=== PATIENT | female | born 1975 | race Caucasian/White ===

== ENCOUNTER 2016-05-17 08:00 | Inpatient (IN) | payer OTHER ==
[2016-05-14 15:36] LABS: HEMATOCRIT 42.4 % (36.0-48.0); HEMOGLOBIN 14.4 g/dL (12-16); MCH 29.1 pg (26.0-34.0); MCV 85.8 fL (80.0-100.0); MEAN PLATELET VOLUME 10.2 fL (7.4-10.4); RBC 4.94 10x6/uL (4.00-5.40); RDW 13.4 % (11.5-14.5); WBC 7.4 10x3/uL (4.8-10.8)
[~2016-05-17] VITALS: Ht 152.4 cm; Wt 55.3 kg
[~2016-05-17 08:00] MED LIST: AUGMENTIN 875-11 TAB PO; BUSPAR 15 MG TA15 MG PO; CELEXA20 MG PO; CELEXA40 MG PO; CIPRO500 MG PO; DIFLUCAN200 MG PO; DURAGESIC1 PATCH .4 TD; ESTRIDOL PO; FERATE240 ( 27 ); FLAGYL 500500 MG/100 PO; FLAGYL500 MG PO; HYDROCODON-ACE1 EAC7 PO; HYDROCODONE-APA1 TAB PO; INTRALIPID 20%250 ML IV; KEFLEX500 MG PO; LEVAQUIN PREMI750 MG PO; LEVAQUIN500 MG PO; LISINOPRIL10 MG PO; MAXIPIME 2 GM/D52 G1 IV; MIRALAX17 GM PO; MIRALAX527 GM PO; MULTIPLE VITAMI1 TA1 PO; NICODERM C1 PATCH .3 TRANSDERM; NORCO 5/325 TAB1 TA1 PO; NORCO 7.5/325 T1 TA1 PO; OMEPRAZOLE40 MG PO; OXYCODONE HCL10 MG PO; PERCOCET 5-3251 TAB PO; PHENERGAN25 M1 PO; ROCEPHIN 2 GM/D52 G1 IV; TIGAN300 MG PO; TPN; ULTRAM50 MG PO; VALIUM 2 MG TAB2 MG PO; VISTARIL25 MG PO; XANAX XR3 MG PO; ZOFRAN ODT4 MG/UDTAB PO; ZOFRAN4 MG PO
[2016-05-17] MEDS ORDERED: XANAX1 MG PO (10:03)
[2016-05-17] MEDS ORDERED: GAS MEDICATION (10:07)
[2016-05-17 10:14] VITALS: BP 109/81; Ht 152.4 cm; Wt 55.3 kg
--- NOTE | 2016-05-17 10:32 | NUR ---
1025 WARMING GOWN ON WARMEST TEMPTERATURE. PT INFORMED HOW TO ADJUST TEMPTERATURE IF SHE BECOMES TOO WARM. Rajinder EVANS R.N.
[2016-05-17] MEDS ORDERED: NORCO 7.5/325 T1 TA1 PO (14:23)
[2016-05-17] MEDS ORDERED: BACTRIM DS TABL1 TAB PO (14:23)
--- NOTE | 2016-05-17 16:24 | NUR ---
CM met with patient and spouse regarding discharge planning / needs. Patient and spouse requested home health services at discharge. Stated spouse is independent with colostomy care and they have plenty of ostomy supplies that they obtain from [facility]. However, spouse will be out of town for a few days and patient's sister, Constance Fraire [phone], will be assisting patient and may need home health support during this time. Patient selected [facility]. CM contacted [email or web address]. Spoke with Andra. Andra will verify if agency is in network with patient's insurance company. Faxed copy of order and demographics to Andra. Awaiting determination.
--- NOTE | 2016-05-17 17:06 | NUR ---
Recieved call back from Andra with [facility]. Agency is unable to determine if they are in network with patient's insurance at this time. Expects to get answer tomorrow morning. Spoke with patient and spouse regarding status of referral. CM will follow up with [facility] tomorrow morning. If [facility] is not in network with patient's insurance, patient choice [facility] as her second option. CM will follow up with patient tomorrow after finalizing home health. Patient and spouse both voiced satisfaction and understanding of this informantion. CM notified patient's nurse Natalie. Natalie will proceed with discharge at this time.
--- NOTE | 2016-05-17 21:24 | OP ---
PATIENT NAME: ROSALINDA OSORIO MEDICAL RECORD: [id number] :77 LOCATION:[facility]- ADMISSION DATE:05/17/16 SURGEON: ASHOK ULLOA MD DATE OF OPERATION: 05/17/2016 PREOPERATIVE DIAGNOSIS: Retraction of colostomy. POSTOPERATIVE DIAGNOSIS: Retraction of colostomy. PROCEDURE PERFORMED: Colostomy revision. SURGEON: Ashok Ulloa MD ANESTHESIA: General. COMPLICATIONS: None. SPECIMENS: None. Case was contaminated. OPERATIVE COURSE: After consent was obtained, the patient was taken to the operating room in the operating room and placed in the supine position on the operating table. Next, general anesthesia was given via endotracheal intubation. After a timeout was performed that confirmed the correct patient and procedure, the abdomen was prepped and draped in typical sterile fashion. The colostomy was excised at the skin edge junction using a 15 blade scalpel. Once complete, dissection continued down the level of the external oblique fascia using electrocautery. Once the colostomy was circumferentially dissected out the external oblique fascia, we were able to gain several centimeters in length. At this time, a wound was copiously irrigated and suctioned. The colostomy was fashioned in a standard Eden fashion using 3-0 Vicryl suture. Once complete, the abdomen was cleaned. A colostomy was prepped and draped in typical sterile fashion. The patient was extubated and transferred to the PACU in stable condition. TRANSINT:[id number] Voice Confirmation ID: [id number] DOCUMENT ID: [id number] ASHOK ULLOA MD at 2124 CC: [id number] DICTATION DATE: 05/17/16 1420 ORGANISATION AND METHODS ANALYST: 05/17/161955 DIS IN 05/17/16 [facility] [address] [id number]
--- NOTE | 2016-05-18 09:59 | NUR ---
NETTA followed up with Andra at [facility] regarding status of referral. Andra informed CM that agency was not in network with patient's insurance. CM called and spoke with Erin with [facility] (formerly [facility]) regarding referral. Erin will verify if agency is in network with patient's insurance company and call CM back. Faxed referral information to Erin. Awaiting determination.
--- NOTE | 2016-05-18 10:28 | NUR ---
CM received call back from Erin with [facility]. [facility] is not in network with patient's insurance. CM called patient and informed of status of referral with [facility] and [facility]. Patient instructed CM to call [facility] with referral and stated that if [facility] did not accept referral CM could then contact [facility]. Patient explained to CM that although she has used [facility] in the past that she prefered not to use [facility] due to lack of communication regarding her supply needs. Patient went on to explain that the agency's nurses provided good care, but she was dissatisfied with the lack of communication between nursing staff and [facility] office regarding her supplies. CM called [facility] and spoke with Jduith regarding referral. Judith stated [facility] was in network with patient's insurance. Judith instructed CM to fax referral to agency and [facility] would call CM back with determination of acceptance of referral. CM faxed referral information to [facility]. Awaiting determination.
--- NOTE | 2016-05-18 11:08 | NUR ---
NETTA received call back from Adryan with [facility]. Adryan stated agency would accept referral and plan to admit patient tomorrow. Adryan requested most recent clinic note and current medication list. NETTA called Dr. Hoskins's office and requested above information be faxed to [facility] agency. CM called patient and notified her of status of referral and to expect home health agency admission tomorrow. Patient voiced understanding and satisfaction with above information. Instructed patient that if she had not heard from [facility] agency tomorrow to call CM back. Patient voiced understanding and repeated back CM's phone number.
== END 2016-05-17 17:40 | disposition home health service (06) | DRG 349 ==
LOC: D.SDCHOLD 08:00
PROVIDERS: Anesthesiology; ADMIT Surgery
PROC: 0WQFXZ2 Repair Abdominal Wall, Stoma, External Approach (ICD-10-PCS; principal; 2016-05-17 10:00)
DX: K94.09 Other complications of colostomy (principal); Y83.8 Other surgical procedures as the cause of abnormal reaction of the patient, or of later complication, without mention of misadventure at the time of the procedure; J44.9 Chronic obstructive pulmonary disease, unspecified; J45.909 Unspecified asthma, uncomplicated; I10 Essential (primary) hypertension; F41.9 Anxiety disorder, unspecified; K75.9 Inflammatory liver disease, unspecified; F17.200 Nicotine dependence, unspecified, uncomplicated

== ENCOUNTER 2016-05-27 17:41 | Emergency (ER) | payer OTHER ==
[2016-05-17 10:14] VITALS: BMI 23.8
[~2016-05-27 17:41] MED LIST changes: +BACTRIM DS TABL1 TAB PO; +GAS MEDICATION; +XANAX1 MG PO
[2016-05-27 18:33] LABS: BASOPHILS 0.4 % (0.0-2.0); EOSINOPHILS 2.9 % (0-7); HEMATOCRIT 38.8 % (36.0-48.0); HEMOGLOBIN 12.8 g/dL (12-16); IMMATURE GRANULOCYTES 0.2 % (0-5); LYMPHOCYTES 19.8 % (15-50); MCH 28.3 pg (26.0-34.0); MCV 85.8 fL (80.0-100.0); MEAN PLATELET VOLUME 9.5 fL (7.4-10.4); MONOCYTES 8.8 % (2-11); NEUTROPHILS 67.9 % (40-80); RBC 4.52 10x6/uL (4.00-5.40); RDW 13.2 % (11.5-14.5); WBC 10.1 10x3/uL (4.8-10.8)
[2016-05-27 18:34] LABS: PLATELET COUNT 429 10x3/uL (130-400)
[2016-05-27 18:42] LABS: APTT 27.2 SECONDS (22.8-39.4); INR 0.93 (0.85-1.17); PROTIME 12.4 SECONDS (11.6-15.0)
[2016-05-27 19:10] LABS: ALBUMIN 3.2 g/dL (3.4-5.0); ALKALINE PHOSPHATASE 80 U/L (46-116); ALT (SGPT) 13 U/L (10-68); BILIRUBIN - TOTAL 0.12 mg/dL (0.2-1.3); CALC OSMOLALITY 276 mosm/kg (275-300); CALCIUM 9.2 mg/dL (8.5-10.1); CHLORIDE - SERUM 102 mmol/L (98-107); CREATININE - SERUM 0.7 mg/dL (0.6-1.3); GLUCOSE 101 mg/dL (74-106); PROTEIN - SERUM 7.1 g/dL (6.4-8.2); SODIUM 139 mmol/L (136-145); UREA NITROGEN 10 mg/dL (7-18); eGFR NON AFRICAN AMERICAN > 90 mL/min (90-120)
== END 2016-05-27 22:17 | disposition home or self-care (01) ==
LOC: D.ER 17:41
PROVIDERS: Emergency Medicine
DX: K94.01 Colostomy hemorrhage (principal)

== ENCOUNTER 2016-07-09 08:15 | Emergency (ER) | payer OTHER ==
[2016-05-17 10:14] VITALS: BMI 23.8
== END 2016-07-09 09:43 | disposition home or self-care (01) ==
LOC: D.ER 08:15
DX: R07.89 Other chest pain (principal); Z93.3 Colostomy status

== ENCOUNTER 2016-07-11 14:37 | Emergency (ER) | payer OTHER ==
[2016-05-17 10:14] VITALS: BMI 23.8
== END 2016-07-11 15:51 | disposition home or self-care (01) ==
LOC: D.ER 14:37
DX: S21.112D Laceration without foreign body of left front wall of thorax without penetration into thoracic cavity, subsequent encounter (principal); X58.XXXD Exposure to other specified factors, subsequent encounter; Y92.89 Other specified places as the place of occurrence of the external cause; Z48.00 Encounter for change or removal of nonsurgical wound dressing

== ENCOUNTER 2016-07-18 10:41 | Emergency (ER) | payer OTHER ==
[2016-05-17 10:14] VITALS: BMI 23.8
== END 2016-07-18 12:02 | disposition home or self-care (01) ==
LOC: D.ER 10:41
DX: S21.102D Unspecified open wound of left front wall of thorax without penetration into thoracic cavity, subsequent encounter (principal); X58.XXXD Exposure to other specified factors, subsequent encounter

== ENCOUNTER → 2017-07-28 08:00 | Outpatient (CLI) | payer MEDICAID ==
[2016-05-17 10:14] VITALS: BMI 23.8
[~2017-07-28 08:00] MED LIST changes: +CHRONULAC30 ML PO; +ESTRACE2 MG PO; +IBUPROFEN800 MG PO; +PROTONIX40 MG PO
[2017-07-28 08:38] LABS: CREATININE - SERUM 0.8 mg/dL (0.6-1.3)
== END | disposition home or self-care (01) ==
LOC: D.CT 08:00
PROVIDERS: Family Medicine
DX: R10.31 Right lower quadrant pain (principal)

== ENCOUNTER 2017-07-29 18:50 | Emergency (ER) | payer MEDICAID ==
[~2017-07-29] VITALS: Ht 152.4 cm; Wt 69.1 kg
[~2017-07-29 18:50] MED LIST changes: -CHRONULAC30 ML PO; -ESTRACE2 MG PO; -IBUPROFEN800 MG PO; -PROTONIX40 MG PO
[2017-07-29 18:57] VITALS: Ht 152.4 cm; Wt 69.1 kg
[2017-07-29] MEDS ORDERED: CHRONULAC30 ML PO (23:08)
[2017-07-30 00:08] VITALS: BP 163/113
[2017-09-20] MEDS ORDERED: ESTRACE2 MG PO (09:22)
[2017-09-20] MEDS ORDERED: PROTONIX40 MG PO (09:23)
== END 2017-07-30 00:09 | disposition home or self-care (01) ==
LOC: D.ER 18:50
DX: K59.00 Constipation, unspecified (principal); Z87.19 Personal history of other diseases of the digestive system; Z93.3 Colostomy status; R11.0 Nausea; B19.20 Unspecified viral hepatitis C without hepatic coma; I12.9 Hypertensive chronic kidney disease with stage 1 through stage 4 chronic kidney disease, or unspecified chronic kidney disease; N18.3 Chronic kidney disease, stage 3 (moderate); I10 Essential (primary) hypertension

== ENCOUNTER → 2017-08-02 07:38 | Outpatient (CLI) | payer MEDICAID ==
[2017-07-29 18:57] VITALS: BMI 29.7
[~2017-08-02 07:38] MED LIST changes: +CHRONULAC30 ML PO; +ESTRACE2 MG PO; +IBUPROFEN800 MG PO; +PROTONIX40 MG PO
== END | disposition home or self-care (01) ==
LOC: D.CT 07:38
DX: R91.8 Other nonspecific abnormal finding of lung field (principal)

== ENCOUNTER 2017-08-04 08:00 | Emergency (ER) | payer MEDICAID ==
[~2017-08-04] VITALS: Ht 152.4 cm; Wt 69.5 kg
[~2017-08-04 08:00] MED LIST changes: -ESTRACE2 MG PO; -IBUPROFEN800 MG PO; -PROTONIX40 MG PO
[2017-08-04 08:06] VITALS: Ht 152.4 cm; Wt 69.5 kg
[2017-08-04 08:32] LABS: BASOPHILS 0.4 % (0-2); EOSINOPHILS 2.5 % (0-7); HEMOGLOBIN 13.8 g/dL (12-16); IMMATURE GRANULOCYTES 0.1 % (0-5); LYMPHOCYTES 34.3 % (15-50); MCH 29.4 pg (26.0-34.0); MCHC 33.7 g/dL (31.0-37.0); MCV 87.2 fL (80.0-100.0); MEAN PLATELET VOLUME 9.8 fL (7.4-10.4); MONOCYTES 6.7 % (2-11); RDW 13.7 % (11.5-14.5); WBC 7.1 10x3/uL (4.8-10.8)
[2017-08-04 08:34] LABS: PLATELET COUNT 308 10x3/uL (130-400)
[2017-08-04 08:48] LABS: ALBUMIN 3.4 g/dL (3.4-5.0); ALKALINE PHOSPHATASE 63 U/L (46-116); ALT (SGPT) 24 U/L (10-68); CALC OSMOLALITY 270 mosm/kg (275-300); CALCIUM 8.7 mg/dL (8.5-10.1); CARBON DIOXIDE 24.6 mmol/L (21.0-32.0); CHLORIDE - SERUM 103 mmol/L (98-107); CREATININE - SERUM 0.8 mg/dL (0.6-1.3); GLUCOSE 138 mg/dL (74-106); POTASSIUM - SERUM 3.7 mmol/L (3.5-5.1); PROTEIN - SERUM 7.3 g/dL (6.4-8.2); SODIUM 134 mmol/L (136-145); UREA NITROGEN 14 mg/dL (7-18); eGFR NON AFRICAN AMERICAN 84 mL/min (90-120)
[2017-08-04 08:49] LABS: AMYLASE - SERUM 52 U/L (25-115); LIPASE 167 U/L (73-393); TROPONIN-I < 0.017 ng/mL (0.000-0.060)
[2017-08-04 08:57] LABS: APPEARANCE HAZY (CLEAR); BACTERIA MODERATE /hpf (NONE SEEN); BILIRUBIN NEGATIVE (NEGATIVE); CALCIUM OXALATE CRYSTALS RARE /hpf (NONE SEEN); COLOR YELLOW (YELLOW); GLUCOSE NEGATIVE (NEGATIVE); KETONE NEGATIVE (NEGATIVE); MUCUS >1+ /lpf (NONE SEEN); NITRITE NEGATIVE (NEGATIVE); PROTEIN NEGATIVE (NEGATIVE); RED CELLS - URINE RARE /hpf (0-5); SPECIFIC GRAVITY 1.025 (1.005-1.020); UDS - AMPHET NEGATIVE QUAL (NEGATIVE); UDS - BARB NEGATIVE QUAL (NEGATIVE); UDS - BENZO POSITIVE QUAL (NEGATIVE); UDS - COCAINE NEGATIVE QUAL (NEGATIVE); UDS - OPIATE NEGATIVE QUAL (NEGATIVE); UDS - PCP NEGATIVE QUAL (NEGATIVE); UDS - THC POSITIVE QUAL (NEGATIVE); UROBILINOGEN NORMAL (NORMAL)
[2017-08-04 10:23] VITALS: BP 146/98
[2017-09-20] MEDS ORDERED: ESTRACE2 MG PO (09:22)
[2017-09-20] MEDS ORDERED: PROTONIX40 MG PO (09:23)
== END 2017-08-04 10:24 | disposition home or self-care (01) ==
LOC: D.ER 08:00
PROVIDERS: Family Medicine
DX: R10.9 Unspecified abdominal pain (principal); R19.7 Diarrhea, unspecified; F17.200 Nicotine dependence, unspecified, uncomplicated

== ENCOUNTER 2017-08-08 17:33 | Emergency (ER) | payer MEDICAID ==
[~2017-08-08] VITALS: Ht 152.4 cm; Wt 69.5 kg
[2017-08-08 17:45] VITALS: Ht 152.4 cm; Wt 69.5 kg
[2017-08-08 18:19] LABS: BASOPHILS 0.6 % (0-2); EOSINOPHILS 2.1 % (0-7); HEMATOCRIT 41.4 % (36.0-48.0); HEMOGLOBIN 13.8 g/dL (12-16); IMMATURE GRANULOCYTES 0.3 % (0-5); LYMPHOCYTES 34.4 % (15-50); MCH 29.4 pg (26.0-34.0); MCHC 33.3 g/dL (31.0-37.0); MCV 88.1 fL (80.0-100.0); MEAN PLATELET VOLUME 9.5 fL (7.4-10.4); MONOCYTES 9.4 % (2-11); NEUTROPHILS 53.2 % (40-80); PLATELET COUNT 279 10x3/uL (130-400); RDW 13.4 % (11.5-14.5); WBC 7.2 10x3/uL (4.8-10.8)
[2017-08-08 18:30] LABS: APPEARANCE CLEAR (CLEAR); COLOR YELLOW (YELLOW)
[2017-08-08 18:35] LABS: BILIRUBIN NEGATIVE (NEGATIVE); GLUCOSE NEGATIVE (NEGATIVE); KETONE NEGATIVE (NEGATIVE); NITRITE NEGATIVE (NEGATIVE); PROTEIN NEGATIVE (NEGATIVE); UROBILINOGEN NORMAL (NORMAL)
[2017-08-08 18:49] LABS: ALBUMIN 3.6 g/dL (3.4-5.0); ALKALINE PHOSPHATASE 64 U/L (46-116); ALT (SGPT) 20 U/L (10-68); BILIRUBIN - TOTAL 0.13 mg/dL (0.2-1.3); CALC OSMOLALITY 277 mosm/kg (275-300); CALCIUM 9.5 mg/dL (8.5-10.1); CARBON DIOXIDE 24.7 mmol/L (21.0-32.0); CHLORIDE - SERUM 104 mmol/L (98-107); CREATININE - SERUM 0.8 mg/dL (0.6-1.3); LIPASE 210 U/L (73-393); POTASSIUM - SERUM 3.9 mmol/L (3.5-5.1); PROTEIN - SERUM 7.8 g/dL (6.4-8.2); SODIUM 140 mmol/L (136-145); UREA NITROGEN 12 mg/dL (7-18); eGFR NON AFRICAN AMERICAN 84 mL/min (90-120)
[2017-08-08 18:51] LABS: GLUCOSE 81 mg/dL (74-106)
[2017-08-08] MEDS ORDERED: IBUPROFEN800 MG PO (23:58)
[2017-08-09 00:28] VITALS: BP 132/72
[2017-09-20] MEDS ORDERED: ESTRACE2 MG PO (09:22)
[2017-09-20] MEDS ORDERED: PROTONIX40 MG PO (09:23)
== END 2017-08-09 00:19 | disposition home or self-care (01) ==
LOC: D.ER 17:33
PROVIDERS: Family Medicine
DX: R10.9 Unspecified abdominal pain (principal)

== ENCOUNTER 2017-09-21 06:55 | Inpatient (IN) | payer MEDICAID ==
[2017-09-20 10:16] LABS: MCH 29.2 pg (26.0-34.0); MCHC 33.3 g/dL (31.0-37.0); MCV 87.6 fL (80.0-100.0); MEAN PLATELET VOLUME 9.4 fL (7.4-10.4); RBC 4.45 10x6/uL (4.00-5.40); RDW 13.5 % (11.5-14.5); WBC 6.1 10x3/uL (4.8-10.8)
[2017-09-20 10:22] LABS: APTT 25.9 SECONDS (22.8-39.4); INR 0.9 (0.85-1.17); PROTIME 11.8 SECONDS (11.6-15.0)
[2017-09-20 10:30] LABS: ALBUMIN 3.2 g/dL (3.4-5.0); ANION GAP 9.7 mmol/L (8-16); BILIRUBIN - TOTAL 0.3 mg/dL (0.2-1.3); CALCIUM 8.4 mg/dL (8.5-10.1); CARBON DIOXIDE 28.5 mmol/L (21.0-32.0); CREATININE - SERUM 0.9 mg/dL (0.6-1.3); POTASSIUM - SERUM 4.2 mmol/L (3.5-5.1)
[~2017-09-21] VITALS: Ht 152.4 cm; Wt 69.9 kg
--- NOTE | ~2017-09-21 | OP ---
PATIENT NAME: ROSALINDA OSORIO MEDICAL RECORD: [id number] :77 LOCATION:D.MS [address] ADMISSION DATE:09/21/17 SURGEON: ASHOK ULLOA MD DATE OF OPERATION: 09/21/2017 SURGEON: Ashok Ulloa MD LAMBSKIN TRIMMER: Iram Rosen APN PREOPERATIVE DIAGNOSIS: Retraction of colostomy. POSTOPERATIVE DIAGNOSIS: Retraction of colostomy. PROCEDURE PERFORMED: Complicated colostomy revision. ANESTHESIA: General. COMPLICATIONS: None. SPECIMENS: Partial colectomy. ESTIMATED BLOOD LOSS: 100 cc. Case was contaminated. OPERATIVE COURSE: After consent was obtained, the patient was taken to the operating room and placed in supine position on the operating table. Next, general anesthesia was given via endotracheal intubation after a timeout was performed to confirm the correct patient and procedure. The abdomen was prepped and draped in typical sterile fashion and Ioban dressing was placed. A circular incision was made around the retracted colostomy. Dissection continued using electrocautery. The patient has had a previous left lower quadrant colostomy, colostomy reversal and end colostomy with a previous operation for retraction of colostomy. Dissection continued around the colostomy using right angle dissection and electrocautery until the external oblique fascia was identified. The external oblique fascia was circumferentially dissected again using blunt right angle dissection and electrocautery. Once the fascial edges identified, dissection continued along the fascial edges circumferentially until the colon was circumferentially freed up. Approximately 6-8 inches of colon were able to be advanced through the ostomy fascial incision. Gentle finger dissection was done on the peritoneum to free adhesions on the anterior abdominal wall. Next, multiple silk sutures were placed to hold the colostomy in place. A colostomy was fashioned in a standard Eden fashion using 3-0 Vicryl suture. At the end of the case, all needle and instrument counts were correct. No complications occurred. The patient was extubated and transferred to the PACU in stable condition. TRANSINT:[id number] Voice Confirmation ID: [id number] DOCUMENT ID: [id number] OPERATIVE REPORT [id number] ROSALINDA OSORIO JAMES J MD at 1306 CC: [id number] DICTATION DATE: 09/21/17 1136 OFFICE SERVICES SPECIALIST: 09/21/17 1234 ADM IN [place] [address] [place] [address]
[~2017-09-21 06:55] MED LIST changes: +ESTRACE2 MG PO; +IBUPROFEN800 MG PO; +PROTONIX40 MG PO
[2017-09-21 08:22] VITALS: BP 127/74; BMI 30.1
[2017-09-21 12:53] VITALS: BP 124/93
[2017-09-21 16:23] VITALS: BP 117/73
[2017-09-21 17:10] VITALS: BMI 30.1
[2017-09-21 21:03] VITALS: BP 122/69
[2017-09-22 01:06] VITALS: BP 118/66
[2017-09-22 04:00] VITALS: BP 116/70
[2017-09-22 06:42] LABS: BASOPHILS 0.1 % (0-2); EOSINOPHILS 3.9 % (0-7); HEMATOCRIT 33.7 % (36.0-48.0); HEMOGLOBIN 10.8 g/dL (12-16); IMMATURE GRANULOCYTES 0.1 % (0-5); LYMPHOCYTES 14.9 % (15-50); MCH 28.2 pg (26.0-34.0); MEAN PLATELET VOLUME 9.6 fL (7.4-10.4); MONOCYTES 7.3 % (2-11); NEUTROPHILS 73.7 % (40-80); PLATELET COUNT 230 10x3/uL (130-400); RBC 3.83 10x6/uL (4.00-5.40); WBC 7.6 10x3/uL (4.8-10.8)
[2017-09-22 07:26] LABS: CALC OSMOLALITY 281 mosm/kg (275-300); CALCIUM 7.3 mg/dL (8.5-10.1); CARBON DIOXIDE 27.4 mmol/L (21.0-32.0); CHLORIDE - SERUM 108 mmol/L (98-107); CREATININE - SERUM 0.8 mg/dL (0.6-1.3); GLUCOSE 96 mg/dL (74-106); MAGNESIUM - SERUM 1.6 mg/dL (1.8-2.4); POTASSIUM - SERUM 4.5 mmol/L (3.5-5.1); SODIUM 142 mmol/L (136-145); eGFR NON AFRICAN AMERICAN 84 mL/min (90-120)
[2017-09-22 07:27] LABS: UREA NITROGEN 9 mg/dL (7-18)
[2017-09-22 08:52] VITALS: BP 133/77
[2017-09-22 12:09] VITALS: BP 128/73
[2017-09-22 14:18] VITALS: Ht 152.4 cm; Wt 69.9 kg
[2017-09-22 15:57] VITALS: BP 118/73
[2017-09-22 21:29] VITALS: BP 141/97
[2017-09-23 00:14] VITALS: BP 130/77
[2017-09-23 04:36] VITALS: BP 127/76
[2017-09-23 08:31] VITALS: BP 110/67
[2017-09-23] MEDS ORDERED: HYDROCODON-ACE1 EAC7 PO (09:15)
== END 2017-09-23 11:08 | disposition home or self-care (01) | DRG 349 ==
LOC: D.SDCHOLD 06:55 → D.MS 06:55 → OBSVTIME 06:55 → D.SDCHOLD 08:00 → D.MS 12:12
PROVIDERS: Anesthesiology; Surgery
PROC: 0WQFXZ2 Repair Abdominal Wall, Stoma, External Approach (ICD-10-PCS; principal; 2017-09-21 09:00)
DX: K94.09 Other complications of colostomy (principal); Y83.8 Other surgical procedures as the cause of abnormal reaction of the patient, or of later complication, without mention of misadventure at the time of the procedure

== ENCOUNTER 2017-09-23 22:26 | Inpatient (IN) | payer MEDICAID ==
[~2017-09-23] VITALS: Ht 152.4 cm; Wt 69.9 kg
--- NOTE | ~2017-09-23 | DS ---
PATIENT:ROSALINDA OSORIO :77 MEDICAL RECORD: [id number] DISCHARGE SUMMARY ADMISSION DATE: 09/24/17 DISCHARGE DATE: 09/26/17 DATE OF ADMISSION: 09/24/2017 DATE OF DISCHARGE: 09/26/2017 HOSPITAL COURSE: A 41-year-old female who was readmitted after a complex recurrent colostomy revision with some swelling and pain around the colostomy site. The patient was taken to the operating room for drainage of post-procedural fluid collection. She was started on IV antibiotics. A Tena dressing was placed in the operating room. Postoperatively, the patient was transferred to the floor in stable condition. The patient was treated with routine wound care, IV fluids and IV antibiotics. At the time of discharge, the patient was tolerating regular diet. Her pain was well controlled on oral pain medicine. She was ambulating independently with functional work and colostomy. Please add this hospital course to previously performed discharge summary in the electronic medical record. TRANSINT:[id number] Voice Confirmation ID: [id number] DOCUMENT ID: [id number] ASHOK ULLOA MD at 1255 CC: [id number] DICTATION DATE: 11/02/17 1656 TWISTER TENDER PAPER: 11/02/17 1825 DIS IN 09/26/17 [address] [place] [address]
--- NOTE | ~2017-09-23 | OP ---
PATIENT NAME: ROSALINDA OSORIO MEDICAL RECORD: [id number] :77 LOCATION:D. D.2106 ADMISSION DATE:09/24/17 SURGEON: ASHOK ULLOA MD DATE OF OPERATION: 09/26/2017 SURGEON: Ashok Ulloa MD PREOPERATIVE DIAGNOSIS: Postoperative wound seroma. POSTOPERATIVE DIAGNOSIS: Postoperative wound seroma. PROCEDURE PERFORMED: Incision and drainage of postoperative wound seroma. ANESTHESIA: General. COMPLICATIONS: None. SPECIMENS: None. WOUND CLASS: Contaminated. OPERATIVE COURSE: After informed consent was obtained, the patient was taken to the operating room and placed in supine position on the operating table. General anesthesia was given. Timeout was taken to confirm the correct patient and procedure. The abdomen was prepped and draped in a typical sterile fashion. There was some fluctuance noted around the left lower quadrant colostomy that was revised earlier last week. There were no overlying skin changes. A small incision was made to the left lower quadrant of the colostomy. A Apurva clamp was passed the incision to the area to the subcutaneous tissue surrounding the colostomy. Approximately 60 cc of serous fluid was drained from the abdomen. A Bro[place] Arrow drain was placed into the subcutaneous tissue surrounding the colostomy. It was secured in place using a 3-0 nylon suture. At the end of the case, all needle and instrument counts were correct. No complications occurred. The patient was extubated and transferred to the PACU in stable condition. TRANSINT:[id number] Voice Confirmation ID: [id number] DOCUMENT ID: [id number] ASHOK ULLOA MD at 1648 CC: [id number] DICTATION DATE: 09/26/17 1157 MANAGER USER EXPERIENCE: 09/26/17 1254 ADM IN [facility] [address] [place] [address]
--- NOTE | ~2017-09-23 | HP ---
PATIENT: ROSALINDA OSORIO MEDICAL RECORD: [id number] ACCOUNT: [id number] LOCATION:[address] : [birth year] ADMISSION DATE: 09/24/17 HISTORY AND PHYSICAL EXAMINATION CHIEF COMPLAINT: Pain. HISTORY OF PRESENT ILLNESS: The patient recently underwent a revision of stoma. It had inverted and Dr. Ulloa was able to get it to kaykay. She now presents with fluid around the stoma as well as some gas. She has had increasing pain. The stoma continues to function. She states that she has been afebrile. Palpation aggravates. Nothing alleviates. She describes the pain as a 10/10. ALLERGIES: No known drug allergies. HOME MEDICATIONS: Lactulose as well as [place], multivitamins, Celexa, polyethylene glycol, BuSpar, lisinopril, Estrace, Protonix. PAST MEDICAL AND SURGICAL HISTORY: Renal insufficiency, history of colostomy. No genitourinary problems. No respiratory problems. Positive for depression. SOCIAL HISTORY: She smokes and advised her to quit smoking. FAMILY HISTORY: Positive for cardiovascular disease and diabetes in a parent. PHYSICAL EXAMINATION: GENERAL: The patient does not appear acutely ill. She does appear chronically ill. The entire physical examination was performed with the presence of a female nurse. VITAL SIGNS: Reviewed. EARS: External ears appear normal. EYES: Extraocular movements are intact. NECK: Trachea is midline. CHEST: No intercostal retractions. PULMONARY: Nonlabored, no stridor. ABDOMEN: Tenderness around the left lower quadrant stoma. PSYCHIATRIC: Anxious affect. NEUROLOGIC: Nonfocal, no lethargy. The patient answers questions appropriately, moves all extremities well. BACK: No thoracic kyphosis. LYMPHATICS: No lymphangitic streaking of the exposed extremities. LABORATORY DATA: I have reviewed the lab results. I have reviewed the CT images. I have reviewed the CT report. IMPRESSION: Subcutaneous fluid collection that also contained air-fluid levels in the subcutaneous tissues around the patient's left lower quadrant stoma. PLAN: Will be exploration of the stoma in the operating room tomorrow. The risks, possible complications, and alternatives to proceed were explained to the patient. She elects to proceed. TRANSINT:[id number] Voice Confirmation ID: [id number] DOCUMENT ID: [id number] HISTORY AND PHYSICAL [id number] DEVONROSALINDA ROBERT MD at 1242 CC: CANDELARIA WEINBERG DO and ASHOK ULLOA MD [id number] DICTATION DATE: 09/24/172044 EMBEDDED SOFTWARE ARCHITECT: 09/24/174 DIS IN 09/26/17 [address] [place] [id number]
[2017-09-23 22:58] LABS: APPEARANCE CLEAR (CLEAR); BILIRUBIN NEGATIVE (NEGATIVE); COLOR YELLOW (YELLOW); GLUCOSE NEGATIVE (NEGATIVE); KETONE SMALL mg/dL (NEGATIVE); NITRITE NEGATIVE (NEGATIVE); PROTEIN NEGATIVE (NEGATIVE); UROBILINOGEN NORMAL (NORMAL)
[2017-09-23 23:36] LABS: BASOPHILS 0.1 % (0-2); HEMATOCRIT 33.1 % (36.0-48.0); HEMOGLOBIN 10.8 g/dL (12-16); IMMATURE GRANULOCYTES 0.2 % (0-5); LYMPHOCYTES 15.1 % (15-50); MCH 28.3 pg (26.0-34.0); MCHC 32.6 g/dL (31.0-37.0); MCV 86.9 fL (80.0-100.0); MEAN PLATELET VOLUME 9.4 fL (7.4-10.4); NEUTROPHILS 72.6 % (40-80); PLATELET COUNT 238 10x3/uL (130-400); RBC 3.81 10x6/uL (4.00-5.40); RDW 13.6 % (11.5-14.5)
[2017-09-23 23:43] LABS: ALBUMIN 2.8 g/dL (3.4-5.0); ALKALINE PHOSPHATASE 61 U/L (46-116); ALT (SGPT) 16 U/L (10-68); BILIRUBIN - TOTAL 0.27 mg/dL (0.2-1.3); CALC OSMOLALITY 264 mosm/kg (275-300); CALCIUM 8.4 mg/dL (8.5-10.1); CHLORIDE - SERUM 104 mmol/L (98-107); CREATININE - SERUM 0.7 mg/dL (0.6-1.3); GLUCOSE 133 mg/dL (74-106); POTASSIUM - SERUM 4.5 mmol/L (3.5-5.1); PROTEIN - SERUM 6.6 g/dL (6.4-8.2); SODIUM 133 mmol/L (136-145); eGFR NON AFRICAN AMERICAN > 90 mL/min (90-120)
[2017-09-23 23:49] LABS: UREA NITROGEN 4 mg/dL (7-18)
[2017-09-24] VITALS (11 sets, daily range): BP systolic 103–155; BP diastolic 57–96; BMI 30.1
[2017-09-25 04:00] VITALS: BP 109/62
[2017-09-25 05:34] LABS: BASOPHILS 0.3 % (0-2); EOSINOPHILS 6.4 % (0-7); HEMATOCRIT 33.8 % (36.0-48.0); HEMOGLOBIN 10.8 g/dL (12-16); IMMATURE GRANULOCYTES 0.1 % (0-5); LYMPHOCYTES 24.6 % (15-50); MCH 28.1 pg (26.0-34.0); MCV 87.8 fL (80.0-100.0); MEAN PLATELET VOLUME 9.3 fL (7.4-10.4); MONOCYTES 9.5 % (2-11); NEUTROPHILS 59.1 % (40-80); PLATELET COUNT 275 10x3/uL (130-400); RBC 3.85 10x6/uL (4.00-5.40); RDW 13.7 % (11.5-14.5)
[2017-09-25 06:30] LABS: CALC OSMOLALITY 276 mosm/kg (275-300); CALCIUM 8.4 mg/dL (8.5-10.1); CARBON DIOXIDE 24.1 mmol/L (21.0-32.0); CHLORIDE - SERUM 107 mmol/L (98-107); CREATININE - SERUM 0.6 mg/dL (0.6-1.3); GLUCOSE 90 mg/dL (74-106); POTASSIUM - SERUM 4.4 mmol/L (3.5-5.1); SODIUM 140 mmol/L (136-145); eGFR NON AFRICAN AMERICAN > 90 mL/min (90-120)
[2017-09-25 06:38] LABS: UREA NITROGEN 6 mg/dL (7-18)
[2017-09-25 08:37] VITALS: BP 114/64
[2017-09-25 12:27] VITALS: BP 116/77
[2017-09-25 20:00] VITALS: BP 126/67
[2017-09-26] VITALS: BP 137/65
[2017-09-26 04:00] VITALS: BP 127/75
[2017-09-26 09:39] VITALS: BP 137/86
[2017-09-26] MEDS ORDERED: AUGMENTIN 875-11 TAB PO (11:50)
[2017-09-26 12:42] VITALS: Ht 152.4 cm; Wt 69.9 kg
[2017-09-26 12:59] VITALS: BP 120/76
[2017-09-26 17:05] VITALS: BP 138/99
== END 2017-09-26 15:30 | disposition home or self-care (01) | DRG 909 ==
LOC: D.ER 22:26 → D.EDHOLD 09-24 02:37 → D.M2 09-24 02:37
PROVIDERS: Family Medicine; Surgery
PROC: 0J980ZZ Drainage of Abdomen Subcutaneous Tissue and Fascia, Open Approach (ICD-10-PCS; principal; 2017-09-26 10:25)
DX: K91.872 Postprocedural seroma of a digestive system organ or structure following a digestive system procedure (principal); Y83.8 Other surgical procedures as the cause of abnormal reaction of the patient, or of later complication, without mention of misadventure at the time of the procedure

== ENCOUNTER 2017-12-17 19:53 | Emergency (ER) | payer MEDICAID ==
[~2017-12-17] VITALS: Ht 152.4 cm; Wt 70.5 kg
[2017-12-17 20:02] VITALS: Ht 152.4 cm; Wt 70.5 kg
[2017-12-17 23:09] VITALS: BP 123/79
== END 2017-12-17 23:10 | disposition home or self-care (01) ==
LOC: D.ER 19:53
DX: Z43.3 Encounter for attention to colostomy (principal)

== ENCOUNTER 2017-12-24 13:09 | Emergency (ER) | payer MEDICAID ==
[~2017-12-24] VITALS: Ht 152.4 cm; Wt 72.7 kg
[2017-12-24 13:17] VITALS: Ht 152.4 cm; Wt 72.7 kg
[2017-12-24] MEDS ORDERED: REXULTI1 MG (13:21)
[2017-12-24] MEDS ORDERED: VALIUM10 MG PO (13:22)
[2017-12-24] MEDS ORDERED: TYLENOL W/CODEI1 TAB PO (16:06)
[2017-12-24] MEDS ORDERED: VIBRAMYCIN 100100 MG PO (16:06)
[2017-12-24] MEDS ORDERED: VOLTAREN75 MG PO (16:07)
[2017-12-24 17:11] VITALS: BP 128/80
== END 2017-12-24 17:12 | disposition home or self-care (01) ==
LOC: D.ER 13:09
DX: L03.311 Cellulitis of abdominal wall (principal); Z93.3 Colostomy status; F17.200 Nicotine dependence, unspecified, uncomplicated

== ENCOUNTER 2017-12-30 17:23 | Emergency (ER) | payer MEDICAID ==
[~2017-12-30] VITALS: Ht 152.4 cm; Wt 75.0 kg
[~2017-12-30 17:23] MED LIST changes: +REXULTI1 MG; +TYLENOL W/CODEI1 TAB PO; +VALIUM10 MG PO; +VIBRAMYCIN 100100 MG PO; +VOLTAREN75 MG PO
[2017-12-30 17:26] VITALS: Ht 152.4 cm; Wt 75.0 kg
[2017-12-30 19:09] LABS: APPEARANCE CLEAR (CLEAR); BILIRUBIN NEGATIVE (NEGATIVE); COLOR YELLOW (YELLOW); GLUCOSE NEGATIVE (NEGATIVE); KETONE NEGATIVE (NEGATIVE); NITRITE NEGATIVE (NEGATIVE); PROTEIN NEGATIVE (NEGATIVE); UROBILINOGEN NORMAL (NORMAL)
[2017-12-30 19:12] LABS: BASOPHILS 0.5 % (0-2); EOSINOPHILS 4.1 % (0-7); HEMATOCRIT 40.2 % (36.0-48.0); HEMOGLOBIN 13.3 g/dL (12-16); IMMATURE GRANULOCYTES 0.2 % (0-5); LYMPHOCYTES 41.5 % (15-50); MCH 28.2 pg (26.0-34.0); MCHC 33.1 g/dL (31.0-37.0); MCV 85.2 fL (80.0-100.0); MEAN PLATELET VOLUME 9.4 fL (7.4-10.4); MONOCYTES 7.7 % (2-11); PLATELET COUNT 311 10x3/uL (130-400); RBC 4.72 10x6/uL (4.00-5.40); RDW 14.6 % (11.5-14.5); WBC 6.4 10x3/uL (4.8-10.8)
[2017-12-30 19:26] LABS: ALBUMIN 3.4 g/dL (3.4-5.0); ALKALINE PHOSPHATASE 76 U/L (46-116); ALT (SGPT) 31 U/L (10-68); BILIRUBIN - TOTAL 0.11 mg/dL (0.2-1.3); CALC OSMOLALITY 274 mosm/kg (275-300); CALCIUM 9.4 mg/dL (8.5-10.1); CARBON DIOXIDE 29.5 mmol/L (21.0-32.0); CHLORIDE - SERUM 103 mmol/L (98-107); CREATININE - SERUM 0.6 mg/dL (0.6-1.3); GLUCOSE 100 mg/dL (74-106); POTASSIUM - SERUM 4.3 mmol/L (3.5-5.1); PROTEIN - SERUM 7.6 g/dL (6.4-8.2); SODIUM 138 mmol/L (136-145); UREA NITROGEN 11 mg/dL (7-18); eGFR NON AFRICAN AMERICAN > 90 mL/min (90-120)
[2017-12-30 19:27] LABS: AMYLASE - SERUM 51 U/L (25-115); LIPASE 196 U/L (73-393)
[2017-12-30 19:32] LABS: TROPONIN-I < 0.017 ng/mL (0.000-0.060)
[2017-12-30 23:10] VITALS: BP 117/78
== END 2017-12-30 23:10 | disposition home or self-care (01) ==
LOC: D.ER 17:23
PROVIDERS: Family Medicine
DX: R10.32 Left lower quadrant pain (principal); Z93.3 Colostomy status; F17.200 Nicotine dependence, unspecified, uncomplicated

== ENCOUNTER 2018-02-07 18:00 | Emergency (ER) | payer SELFPAY ==
[~2018-02-07] VITALS: Ht 152.4 cm; Wt 68.2 kg
[2018-02-07 18:03] VITALS: Ht 152.4 cm; Wt 68.2 kg
[2018-02-07 19:00] LABS: APPEARANCE CLOUDY (CLEAR); COLOR YELLOW (YELLOW); NITRITE NEGATIVE (NEGATIVE)
[2018-02-07 19:01] LABS: AMORPHOUS SEDIMENT <1+ /lpf (NONE SEEN); BACTERIA MANY /hpf (NONE SEEN); BILIRUBIN NEGATIVE (NEGATIVE); EPITHELIAL CELLS OCC /hpf (0-5); GLUCOSE NEGATIVE (NEGATIVE); KETONE NEGATIVE (NEGATIVE); MUCUS <1+ /lpf (NONE SEEN); PROTEIN 2+ mg/dL (NEGATIVE); RED CELLS - URINE 25-50 /hpf (0-5); UROBILINOGEN NORMAL (NORMAL)
[2018-02-07] MEDS ORDERED: PHENAZOPYRIDIN100 MG PO (19:13)
[2018-02-07] MEDS ORDERED: MACROBID100 MG PO (19:13)
[2018-02-07 19:26] VITALS: BP 139/88
== END 2018-02-07 19:27 | disposition home or self-care (01) ==
LOC: D.ER 18:00
PROVIDERS: Family Medicine
DX: N39.0 Urinary tract infection, site not specified (principal); R35.0 Frequency of micturition; F17.200 Nicotine dependence, unspecified, uncomplicated

== ENCOUNTER 2018-09-07 14:27 | Emergency (ER) | payer MEDICARE, MEDICAID ==
[~2018-09-07] VITALS: Ht 152.4 cm; Wt 58.2 kg
[~2018-09-07 14:27] MED LIST changes: +MACROBID100 MG PO; +PHENAZOPYRIDIN100 MG PO
[2018-09-07 14:30] VITALS: Ht 152.4 cm; Wt 58.2 kg
[2018-09-07 15:00] LABS: BASOPHILS 0.7 % (0-2); EOSINOPHILS 2.5 % (0-7); HEMATOCRIT 37.9 % (36.0-48.0); HEMOGLOBIN 13.2 g/dL (12-16); IMMATURE GRANULOCYTES 0.3 % (0-5); LYMPHOCYTES 28.1 % (15-50); MCH 28.8 pg (26.0-34.0); MCHC 34.8 g/dL (31.0-37.0); MCV 82.8 fL (80.0-100.0); MEAN PLATELET VOLUME 9.2 fL (7.4-10.4); MONOCYTES 9.6 % (2-11); NEUTROPHILS 58.8 % (40-80); PLATELET COUNT 282 10x3/uL (130-400); RBC 4.58 10x6/uL (4.00-5.40); RDW 13.4 % (11.5-14.5); WBC 6.8 10x3/uL (4.8-10.8)
[2018-09-07 15:14] LABS: ALBUMIN 3.5 g/dL (3.4-5.0); ALKALINE PHOSPHATASE 87 U/L (46-116); ALT (SGPT) 34 U/L (10-68); BILIRUBIN - TOTAL 0.17 mg/dL (0.2-1.3); CALC OSMOLALITY 280 mosm/kg (275-300); CALCIUM 9.1 mg/dL (8.5-10.1); CARBON DIOXIDE 26.7 mmol/L (21.0-32.0); CHLORIDE - SERUM 106 mmol/L (98-107); CREATININE - SERUM 0.8 mg/dL (0.6-1.3); GLUCOSE 110 mg/dL (74-106); POTASSIUM - SERUM 4.3 mmol/L (3.5-5.1); PROTEIN - SERUM 7.4 g/dL (6.4-8.2); SODIUM 140 mmol/L (136-145); UREA NITROGEN 16 mg/dL (7-18); eGFR NON AFRICAN AMERICAN 84 mL/min (90-120)
[2018-09-07 15:18] LABS: AMYLASE - SERUM 77 U/L (25-115); LIPASE 156 U/L (73-393)
[2018-09-07 15:19] LABS: TROPONIN-I < 0.017 ng/mL (0.000-0.060)
[2018-09-07 15:51] LABS: APPEARANCE CLEAR (CLEAR); COLOR STRAW (YELLOW); NITRITE NEGATIVE (NEGATIVE); PROTEIN TRACE mg/dL (NEGATIVE)
[2018-09-07 15:52] LABS: BACTERIA FEW /hpf (NONE SEEN); BILIRUBIN NEGATIVE (NEGATIVE); GLUCOSE NEGATIVE (NEGATIVE); KETONE NEGATIVE (NEGATIVE); UROBILINOGEN NORMAL (NORMAL); WHITE CELLS - URINE 0-5 /hpf (0-5)
[2018-09-07] MEDS ORDERED: COLACE100 MG PO (17:58)
[2018-09-07] MEDS ORDERED: MIRALAX17 GM PO (17:58)
[2018-09-07 18:10] VITALS: BP 137/96
== END 2018-09-07 18:11 | disposition home or self-care (01) ==
LOC: D.ER 14:27
PROVIDERS: Family Medicine
DX: K59.00 Constipation, unspecified (principal)

== ENCOUNTER 2019-11-04 10:21 | Inpatient (IN) | payer MEDICARE ==
[~2019-11-04] VITALS: Ht 152.4 cm; Wt 68.9 kg
[~2019-11-04 10:21] MED LIST changes: +COLACE100 MG PO
--- NOTE | 2019-11-04 12:29 | NUR ---
DR. MUNIZ HERE TO SEE PT.
[2019-11-04 13:26] LABS: BASOPHILS 0.3 % (0-2); EOSINOPHILS 0.4 % (0-7); HEMATOCRIT 42.8 % (36.0-48.0); HEMOGLOBIN 14.1 g/dL (12-16); IMMATURE GRANULOCYTES 0.2 % (0-5); LYMPHOCYTES 20.8 % (15-50); MCH 28.6 pg (26.0-34.0); MCHC 32.9 g/dL (31.0-37.0); MCV 86.8 fL (80.0-100.0); MONOCYTES 8.3 % (2-11); PLATELET COUNT 310 10x3/uL (130-400); RBC 4.93 10x6/uL (4.00-5.40); RDW 12.9 % (11.5-14.5)
[2019-11-04 13:50] LABS: CALC OSMOLALITY 277 mosm/kg (275-300); CALCIUM 9.4 mg/dL (8.5-10.1); CARBON DIOXIDE 27.6 mmol/L (21.0-32.0); CHLORIDE - SERUM 105 mmol/L (98-107); CREATININE - SERUM 0.8 mg/dL (0.6-1.3); GLUCOSE 115 mg/dL (74-106); POTASSIUM - SERUM 3.4 mmol/L (3.5-5.1); SODIUM 139 mmol/L (136-145); UREA NITROGEN 11 mg/dL (7-18); eGFR NON AFRICAN AMERICAN 83 mL/min (90-120)
[2019-11-04 13:55] LABS: INR 0.97 (0.85-1.17); PROTIME 12.9 SECONDS (11.6-15.0)
[2019-11-04 13:56] LABS: ALKALINE PHOSPHATASE 96 U/L (30-120); ALT (SGPT) 19 U/L (10-68); BILIRUBIN - TOTAL 0.35 mg/dL (0.2-1.3); PROTEIN - SERUM 7.8 g/dL (6.4-8.2)
[2019-11-04 13:58] LABS: HCG SERUM NEGATIVE (NEGATIVE)
[2019-11-04 19:57] VITALS: BP 134/91
--- NOTE | 2019-11-04 20:30 | NUR ---
A&0 X 4. 1PERSON ASSIST FROM CHAIR TO BED. PAIN LEVEL 9/10. RIGHT KNEE IMMOBILIZER IN USE. WALE SHAYY IN USE AND FUNCTIONING PROPERLY. BSC AT BEDSIDE. PT EATING DINNER. CTM.
[2019-11-04] MEDS ORDERED: ADVIL200 MG PO (20:49)
--- NOTE | 2019-11-04 21:15 | NUR ---
WALE WAIVER SIGNED AND IN CHART. PT VERBALIZED UNDERSTANDING OF NEED TO USE CALL LIGHT BEFORE AMBULATION. COVID SWAB PERFORMED, CTM.
[2019-11-04 21:16] VITALS: BP 143/84
[2019-11-05] VITALS (12 sets, daily range): BP systolic 114–143; BP diastolic 67–92; Ht 152.4 cm; Wt 68.9 kg
--- NOTE | 2019-11-05 03:00 | NUR ---
NO TELEMETRY AVAILABLE PER DIRECTOR OF CONTRACTS.
[2019-11-05 05:11] LABS: BASOPHILS 0.6 % (0-2); EOSINOPHILS 2.9 % (0-7); HEMATOCRIT 37.6 % (36.0-48.0); HEMOGLOBIN 12.2 g/dL (12-16); IMMATURE GRANULOCYTES 0.3 % (0-5); LYMPHOCYTES 25.9 % (15-50); MCH 28.6 pg (26.0-34.0); MCHC 32.4 g/dL (31.0-37.0); MCV 88.3 fL (80.0-100.0); MONOCYTES 12.2 % (2-11); NEUTROPHILS 58.1 % (40-80); PLATELET COUNT 267 10x3/uL (130-400); RBC 4.26 10x6/uL (4.00-5.40); RDW 13.1 % (11.5-14.5)
[2019-11-05 05:31] LABS: ANION GAP 10.7 mmol/L (8-16); CALCIUM 8.2 mg/dL (8.5-10.1); CARBON DIOXIDE 27.8 mmol/L (21.0-32.0); CREATININE - SERUM 0.9 mg/dL (0.6-1.3); POTASSIUM - SERUM 3.5 mmol/L (3.5-5.1)
[2019-11-05 05:34] LABS: WBC 6.2 10x3/uL (4.8-10.8)
--- NOTE | 2019-11-05 08:58 | NUR ---
0700 BEDSIDE REPORT REECEIVED ASSESSMENT COMPLETE VOICES NO COMPLANAINTS AT THIS TIME UTILIZING CLINICAL ATHLETIC INSTRUCTOR MORPHINE
--- NOTE | 2019-11-05 12:27 | NUR ---
1220 PRE OP COMPLETE OR STAFF PRESENT TO TAKE TO SURGERY BRACELET AND 2 NIPPLE RINGS REMOVED AND LEFT IN ROOM
--- NOTE | 2019-11-05 15:40 | NUR ---
1530 RETURNED FROM PACU TO ROOM 6242 INITIATED FREQUENT VITAL SIGNS AWAKENS TO VOICE AND FOLLOWS COMMANDS NO FEELING OF TOUCH TO RLE R/T FEM POP BLOCK GIVEM IN SURGERY
--- NOTE | 2019-11-05 18:46 | NUR ---
DD/C OFFICE MACHINE SERVICER APPRENTICE MORPHINE WASTED IN CHARTING
[2019-11-06] VITALS (7 sets, daily range): BP systolic 114–153; BP diastolic 77–92
--- NOTE | 2019-11-06 03:49 | NUR ---
I have reviewed this patient and I concur with the Shift Assessment completed by the Licensed Practical Nurse today this shift.
[2019-11-06 06:29] LABS: BASOPHILS 0.1 % (0-2); EOSINOPHILS 0.7 % (0-7); HEMOGLOBIN 10.8 g/dL (12-16); IMMATURE GRANULOCYTES 0.1 % (0-5); LYMPHOCYTES 16.7 % (15-50); MCH 28.2 pg (26.0-34.0); MCHC 31.8 g/dL (31.0-37.0); MCV 88.8 fL (80.0-100.0); MONOCYTES 10.6 % (2-11); NEUTROPHILS 71.8 % (40-80); PLATELET COUNT 234 10x3/uL (130-400); RBC 3.83 10x6/uL (4.00-5.40); RDW 12.8 % (11.5-14.5)
[2019-11-06 06:43] LABS: CALCIUM 8.5 mg/dL (8.5-10.1); CARBON DIOXIDE 25.7 mmol/L (21.0-32.0); CHLORIDE - SERUM 105 mmol/L (98-107); CREATININE - SERUM 0.8 mg/dL (0.6-1.3); POTASSIUM - SERUM 3.8 mmol/L (3.5-5.1); SODIUM 139 mmol/L (136-145); eGFR NON AFRICAN AMERICAN 83 mL/min (90-120)
[2019-11-06 06:45] LABS: CALC OSMOLALITY 279 mosm/kg (275-300); GLUCOSE 164 mg/dL (74-106); UREA NITROGEN 8 mg/dL (7-18)
[2019-11-06 07:01] LABS: WBC 8.2 10x3/uL (4.8-10.8)
--- NOTE | 2019-11-06 12:05 | NUR ---
0700 BEDSIDE REPORT RECIEVED PT AWAKE AND SMILING ASSESSMENT COMPLETE
--- NOTE | 2019-11-06 12:06 | NUR ---
1000 AMBULATING IN [facility] WITH STANDBY ASSIST AND USING WALKER LIONEL WELL
--- NOTE | 2019-11-06 14:56 | MORECARE ---
CASE MANAGEMENT DISCHARGE SUMMARY PATIENT: ROSALINDA OSORIO UNIT: [id number] ADM DATE: 11/04/19 AGE: 44 : 77 SEX: F ROOM/BED: D.2238 AUTHOR: ANTHONY BLACK PHYSICIAN: REFERRING PHYSICIAN: HARISH PRAKASH MD DATE OF SERVICE: 11/06/19 Discharge Plan Patient Name: ROSALINDA OSORIO Facility: [facility]:[place] : 1975 Planned Disposition: Anticipated Discharge Date: Discharge Date: Expected LOS: Initial Reviewer: [email or web address] Initial Review Date: 11/06/2019 Generated: 11/06/19 3:56 pm Comments DCP- Discharge Planning Updated by [email or web address]: Andra Peng on 11/06/19 1:[address] Patient Name: ROSALINDA OSORIO Admission Status: ER Accout number: [id number] Admission Date: 11-04-2019 : 1975 Admission Diagnosis:DISPLACED BICONDYLAR FRACTURE OF RIGHT TIBIA, INIT Attending: HARISH PRAKASH Current LOS: 2 Anticipated DC Date: Planned Disposition: Primary Insurance: MEDICARE A & B Discharge Planning Comments: CM met with patient at bedside after explaining CM role and obtaining verbal consent. CM discussed availability / needs of home health, REHAB and medical equipment. STATES SHE WILL NEED A WALKER OR CRUTCHES. DOES NOT WANT HOME HEALTH BECAUSE SHE SAID SHE LIVES AT A [place]. PATIENT IS AMBULATORY WITH A WALKER IN THE HALLS. CM TO FOLLOW AND ASSIST NEEDED. Blending Machine Feeder: Andra Peng DCPIA - Discharge Planning Initial Assessment Updated by [email or web address]: Andra Peng on 11/06/19 2:54 pm * Is the patient Alert and Oriented? Yes * PCP FARO * Pharmacy [facility] * Preadmission Environment Other * Other Environment LIVES AT A [place] * ADLs Independent * Equipment None * Community resources currently utilized None * Additional services required to return to the preadmission environment? No * Can the patient safely return to the preadmission environment? Yes * Has this patient been hospitalized within the prior 30 days at any hospital? No Patient Name: ROSALINDA OSORIO Page [phone] at 1456 All edits/amendments must be made on the electronic document DICTATION DATE: 11/06/191455 ACTIVITIES COORDINATOR: BURKE 11/06/191455 RPT#: [id number] DC DATE: STATUS: ADM IN [facility] [address] [place] [address] END OF REPORT
--- NOTE | 2019-11-06 20:00 | NUR ---
PT SITTING UP IN BED WITHOUT DISTRESS, AOX4. BOYFRIEND AT BEDSIDE. DENIES NEEDS AT THIS TIME. CL IN REACH, WILL CTM
--- NOTE | 2019-11-06 22:00 | NUR ---
PT WALKING AROUND NURSES STATION WITH WALKER AND STAND BY ASSIST AT THIS TIME
--- NOTE | 2019-11-06 23:15 | NUR ---
PT STATES PAIN 09/23, GAVE PERCOCET ORDERED
[2019-11-07] VITALS: BP 161/92
--- NOTE | 2019-11-07 02:00 | NUR ---
PT STATES PAIN 09/23, GAVE TYLENOL ORDERED. WILL CTM
--- NOTE | 2019-11-07 03:15 | NUR ---
PT STATES PAIN 10/10, GAVE PERCOCET ORDERED. PROPPED RIGHT LEG AND PLACE ICE PACK ON KNEE. DENIES OTHER NEEDS, WILL CTM
[2019-11-07 04:00] VITALS: BP 135/88
[2019-11-07 06:48] LABS: HEMATOCRIT 34.3 % (36.0-48.0); HEMOGLOBIN 10.8 g/dL (12-16)
[2019-11-07 08:37] VITALS: BP 122/68
[2019-11-07 12:57] VITALS: BP 150/88
--- NOTE | 2019-11-07 13:04 | NUR ---
VS : 152/71 95% 73
--- NOTE | 2019-11-07 15:43 | OP ---
PATIENT NAME: ROSALINDA OSORIO MEDICAL RECORD: [id number] :77 LOCATION:D.MS [address] ADMISSION DATE:11/04/19 SURGEON: ASHOK MUNIZ MD DATE OF OPERATION: 11/04/2019 PREOPERATIVE DIAGNOSIS: Right tibial plateau fracture -- bicondylar. POSTOPERATIVE DIAGNOSIS: Right tibial plateau fracture -- bicondylar. PROCEDURE: Open reduction internal fixation of right tibial plateau fracture. SURGEON: Ashok Muniz MD DIRECTOR MBA: GISELLE Gray INTRAOPERATIVE COMPLICATIONS: None. SUMMARY OF PATHOLOGIC FINDINGS: The patient did indeed have tibial toe fracture primarily medial based without substantial depression. It did go to the lateral side. This was all flexible from the medial aspect. OPERATIVE SUMMARY IN DETAIL: After obtaining the appropriate preoperative orthopedic surgery consent as well as anesthetic consultation, evaluation and clearance, the patient was brought to the operating room and placed on the operating table in supine position. After general laryngeal mask airway was administered, tourniquet was placed on the proximal aspect of the right lower extremity. Right lower extremity was prepped and draped in routine sterile fashion. The leg was elevated and exsanguinated, tourniquet was inflated to 350 mmHg. At this point, appropriate timeout was taken and agreed upon by all given the patient's unique identifiers. Curvilinear hockey stick was made on the medial aspect of the knee. It was taken down the anterior aspect of the tibia. A careful subperiosteal dissection was done to create a flap. At this point, under direct fluoroscopic visualization, very small reduction maneuver was performed, pushing the medial tibial plateau back to an anatomic position as seen on AP and lateral planes. The Simba medial plate was then deployed with a combination of both compression and locking screws, again done under both AP and lateral fluoroscopic planes. Very good anatomic christian of the tibial plateau was achieved. At this point, after good fixation was achieved, AP and lateral planes were taken and submitted for final radiologist review. The wound was then copiously irrigated. It is of note that the medial meniscus was reapproximated back to the coronary ligaments to avoid the meniscal subluxation into the joint and then the fascial planes were closed followed by #1 Vicryl, 2-0 Vicryl and skin closure with skin adelso. Sterile dressings were applied. A knee immobilizer applied after the tourniquet was deflated. The patient was awakened and taken to recovery room in stable condition. All final needle and sponge counts were correct. TRANSINT:[id number] Voice Confirmation ID: [id number] DOCUMENT ID: [id number] OPERATIVE REPORT [id number] ROSALINDA OSORIO MD, ASHOK PALM at 1543 CC: [id number] DICTATION DATE: 11/06/19 1558 COLOR CARD MAKER: 11/07/19 0036 ADM IN [address] [place] [address]
--- NOTE | 2019-11-07 16:23 | MORECARE ---
CASE MANAGEMENT DISCHARGE SUMMARY PATIENT: ROSALINDA OSORIO UNIT: [id number] ADM DATE: 11/04/19 AGE: 44 : 77 SEX: F ROOM/BED: D.2238 AUTHOR: WAYNEDOC PHYSICIAN: REFERRING PHYSICIAN: HARISH PRAKASH MD DATE OF SERVICE: 11/07/19 Discharge Plan Patient Name: ROSALINDA OSORIO Facility: [facility]:[place] : 1975 Planned Disposition: Anticipated Discharge Date: Discharge Date: Expected LOS: Initial Reviewer: [email or web address] Initial Review Date: 11/06/2019 Generated: 11/07/19 5:22 pm DCP- Discharge Planning Updated by [email or web address]: Andracleopatra Peng on 11/06/19 1:[address] Patient Name: ROSALINDA OSORIO Admission Status: ER Accout number: [id number] Admission Date: 11-04-2019 : 1975 Admission Diagnosis:DISPLACED BICONDYLAR FRACTURE OF RIGHT TIBIA, INIT Attending: HARISH PRAKASH Current LOS: 2 Anticipated DC Date: Planned Disposition: Primary Insurance: MEDICARE A & B Discharge Planning Comments: CM met with patient at bedside after explaining CM role and obtaining verbal consent. CM discussed availability / needs of home health, REHAB and medical equipment. STATES SHE WILL NEED A WALKER OR CRUTCHES. DOES NOT WANT HOME HEALTH BECAUSE SHE SAID SHE LIVES AT A [place]. PATIENT IS AMBULATORY WITH A WALKER IN THE HALLS. CM TO FOLLOW AND ASSIST NEEDED. Irradiated Fuel Handler: Andra Peng DCPIA - Discharge Planning Initial Assessment Updated by [email or web address]: Andra Peng on 11/06/19 2:54 pm * Is the patient Alert and Oriented? Yes * PCP FARO * Pharmacy [facility] * Preadmission Environment Other * Other Environment LIVES AT A [place] * ADLs Independent * Equipment None * Community resources currently utilized None * Additional services required to return to the preadmission environment? No * Can the patient safely return to the preadmission environment? Yes * Has this patient been hospitalized within the prior 30 days at any hospital? No External Providers External Provider: Critical access hospital Next Contact Date: Service Request Date: Service Type: Resolution: Reviewer: Comments: Last DP export: 11/06/19 1:56 p Patient Name: ROSALINDA OSORIO Page [phone] at 1623 All edits/amendments must be made on the electronic document DICTATION DATE: 11/07/191621 RESEARCHER: BURKE 11/07/191621 RPT#: [id number] DC DATE: STATUS: ADM IN [facility] [address] [place] [address] END OF REPORT
--- NOTE | 2019-11-07 16:32 | MORECARE ---
CASE MANAGEMENT DISCHARGE SUMMARY PATIENT: ROSALINDA OSORIO UNIT: [id number] ADM DATE: 11/04/19 AGE: 44 : 77 SEX: F ROOM/BED: D.2238 AUTHOR: WAYNEDOC PHYSICIAN: REFERRING PHYSICIAN: HARISH PRAKASH MD DATE OF SERVICE: 11/07/19 Discharge Plan Patient Name: ROSALINDA OSORIO Facility: [facility]:[place] : 1975 Planned Disposition: Anticipated Discharge Date: Discharge Date: Expected LOS: Initial Reviewer: [email or web address] Initial Review Date: 11/06/2019 Generated: 11/07/19 5:32 pm Comments DCP- Discharge Planning Updated by [email or web address]: Andra Peng on 11/07/19 3:[address] Patient Name: ROSALINDA OSORIO Admission Status: ER Accout number: [id number] Admission Date: 11-04-2019 : 1975 Admission Diagnosis:DISPLACED BICONDYLAR FRACTURE OF RIGHT TIBIA, INIT Attending: HARISH PRAKASH Current LOS: 3 Anticipated DC Date: Planned Disposition: Primary Insurance: MEDICARE A & B Discharge Planning Comments: SPOKE WITH PATIENT ABOUT REHAB, SHE DOES NOT WANT TO GO TO A SNF BECAUSE OF COVID. I FAXED ORDER FOR HER WALKER TO [facility]. ANTICIPATE THEM TO DELIVER IT TOMORROW. CM TO FOLLOW AND ASSIST NEEDED. Promotions Coordinator: nAdra Ginette DCP- Discharge Planning Updated by [id number]: Andra Peng on 11/06/19 1:[address] Patient Name: ROSALINDA OSORIO Admission Status: ER Accout number: [id number] Admission Date: 11-04-2019 : 1975 Admission Diagnosis:DISPLACED BICONDYLAR FRACTURE OF RIGHT TIBIA, INIT Attending: HARISH PRAKASH Current LOS: 2 Anticipated DC Date: Planned Disposition: Primary Insurance: MEDICARE A & B Discharge Planning Comments: CM met with patient at bedside after explaining CM role and obtaining verbal consent. CM discussed availability / needs of home health, REHAB and medical equipment. STATES SHE WILL NEED A WALKER OR CRUTCHES. DOES NOT WANT HOME HEALTH BECAUSE SHE SAID SHE [place]. PATIENT IS AMBULATORY WITH A WALKER IN THE HALLS. CM TO FOLLOW AND ASSIST NEEDED. Promotions Coordinator: Andra Peng DCPIA - Discharge Planning Initial Assessment Updated by [id number]: Andra Peng on 11/06/19 2:54 pm * Is the patient Alert and Oriented? Yes * PCP FARO * Pharmacy [facility] * Preadmission Environment Other * Other Environment [facility] * ADLs Independent * Equipment None * Community resources currently utilized None * Additional services required to return to the preadmission environment? No * Can the patient safely return to the preadmission environment? Yes * Has this patient been hospitalized within the prior 30 days at any hospital? No Last DP export: 11/07/19 3:23 p Patient Name: ROSALINDA OSORIO Page [id number] at 1632 All edits/amendments must be made on the electronic document DICTATION DATE: 11/07/19 163 FERRYBOAT CAPTAIN: BURKE 11/07/19 1632 RPT#: [id number] [place] DATE: STATUS: ADM IN [facility] [address] [place] [address] END OF REPORT
[2019-11-07 17:19] VITALS: BP 116/65
[2019-11-07 20:00] VITALS: BP 121/79
--- NOTE | 2019-11-07 20:00 | NUR ---
PT SITTING UP IN BED WITHOUT DISTRESS, AOX4. REFUSES HS MEDS, STATES SHE JUST WANTS PAIN PILL. GAVE OXY ORDERED. PT REFUSES IV FLUIDS. LEFT AC SL. DENIES OTHER NEEDS AT THIS TIME. CL IN REACH, WILL CTM
[2019-11-08] VITALS: BP 108/63
--- NOTE | 2019-11-08 03:45 | NUR ---
PT STATES PAIN 08/23, GAVE PERCOCET ORDERED. DENIES OTHER NEEDS, WILL CTM
[2019-11-08 04:00] VITALS: BP 93/58
--- NOTE | 2019-11-08 07:10 | NUR ---
A&O RESTING IN BED WITH EYES OPEN. NO C/O PAIN. NO S/S OF ACUTE DISTRESS NOTED. POD #3 ORIF RIGHT KNEE, DRESSING C/D/I. UP WITH WALKER, NON-WEIGHT BEARING ON RIGHT LEG AT THIS TIME. IV TO RIGHT AC, NS INFUSING @ 50ML/HR. SITE PATENT WITHOUT REDNESS OR SWELLING. DENIES ANY NEEDS AT THIS TIME. CALL LIGHT IN REACH. WILL CONTINUE TO MONITOR.
[2019-11-08 07:24] LABS: HEMATOCRIT 32.3 % (36.0-48.0); HEMOGLOBIN 10.2 g/dL (12-16)
--- NOTE | 2019-11-08 08:29 | NUR ---
HAS BEEN HERE. PATIENT AMBULATING WITH
[2019-11-08 12:33] VITALS: BP 112/71
[2019-11-08] MEDS ORDERED: HYDROCODON-ACE1 EA10 PO (13:06)
[2019-11-08] MEDS ORDERED: ELIQUIS2.5 MG PO (13:06)
--- NOTE | 2019-11-08 14:49 | MORECARE ---
CASE MANAGEMENT DISCHARGE SUMMARY PATIENT: ROSALINDA OSORIO UNIT: [id number] ADM DATE: 11/04/19 AGE: 44 : 77 SEX: F ROOM/BED: D.2238 AUTHOR: ANTHONY BLACK PHYSICIAN: REFERRING PHYSICIAN: HARISH PRAKASH MD DATE OF SERVICE: 11/08/19 Discharge Plan Patient Name: ROSALINDA OSORIO Facility: [facility]:[place] : 1975 Planned Disposition: Anticipated Discharge Date: Discharge Date: Expected LOS: Initial Reviewer: [email or web address] Initial Review Date: 11/06/2019 Generated: 11/08/19 3:49 pm Comments DCP- Discharge Planning Updated by [id number]: Andra Peng on 11/08/19 1:[address] Patient Name: ROSALINDA OSORIO Admission Status: ER Accout number: [id number] Admission Date: 11-04-2019 : 1975 Admission Diagnosis:DISPLACED BICONDYLAR FRACTURE OF RIGHT TIBIA, INIT Attending: HARISH PRAKASH Current LOS: 4 Anticipated DC Date: Planned Disposition: Primary Insurance: MEDICARE A & B Discharge Planning Comments: WALKER WAS DELIVERED TO HER ROOM. IMM SIGNED. PLAN TO DC TO HOME TODAY. Business Information Analyst: Andra Peng DCP- Discharge Planning Updated by [email or web address]: Andra Peng on 11/07/19 3:[address] Patient Name: ROSALINDA OSORIO Admission Status: ER Accout number: [id number] Admission Date: 11-04-2019 : 1975 Admission Diagnosis:DISPLACED BICONDYLAR FRACTURE OF RIGHT TIBIA, INIT Attending: HARISH PRAKASH Current LOS: 3 Anticipated DC Date: Planned Disposition: Primary Insurance: MEDICARE A & B Discharge Planning Comments: SPOKE WITH PATIENT ABOUT REHAB, SHE DOES NOT WANT TO GO TO A SNF BECAUSE OF COVID. I FAXED ORDER FOR HER WALKER TO [facility]. ANTICIPATE THEM TO DELIVER IT TOMORROW. CM TO FOLLOW AND ASSIST NEEDED. Business Information Analyst: Andra Peng DCP- Discharge Planning Updated by [id number]: Andra Peng on 11/06/19 1:[address] Patient Name: ROSALINDA OSORIO Admission Status: ER Accout number: [id number] Admission Date: 11-04-2019 : 1975 Admission Diagnosis:DISPLACED BICONDYLAR FRACTURE OF RIGHT TIBIA, INIT Attending: HARISH PRAKASH Current LOS: 2 Anticipated DC Date: Planned Disposition: Primary Insurance: MEDICARE A & B Discharge Planning Comments: CM met with patient at bedside after explaining CM role and obtaining verbal consent. CM discussed availability / needs of home health, REHAB and medical equipment. STATES SHE WILL NEED A WALKER OR CRUTCHES. DOES NOT WANT HOME HEALTH BECAUSE SHE SAID SHE [place]. PATIENT IS AMBULATORY WITH A WALKER IN THE HALLS. CM TO FOLLOW AND ASSIST NEEDED. Business Information Analyst: Andra Peng DCPIA - Discharge Planning Initial Assessment Updated by [id number]: Andra Peng on 11/06/19 2:54 pm * Is the patient Alert and Oriented? Yes * PCP FARO * Pharmacy [facility] * Preadmission Environment Other * Other Environment [facility] * ADLs Independent * Equipment None * Community resources currently utilized None * Additional services required to return to the preadmission environment? No * Can the patient safely return to the preadmission environment? Yes * Has this patient been hospitalized within the prior 30 days at any hospital? No Coverage Notice Reviewer: [id number] - Andra Peng Notice Issued Date-Time: 11/08/2019 14:45 Notice Type: IM Discharge Notice Notice Delivered To: Patient Relationship to Patient: Sales Appointment Coordinator Name: Delivery Method: HAND - Hand Delivered Lacey Days: Prior Verbal Notification: Recipient Understood Notice: Yes Recipient Signature: Yes Med Rec Note Co-signed by Attending: Coverage Notice Comment: Last DP export: 11/07/19 3:32 p Patient Name: ROSALINDA OSORIO Page [id number] at 1449 All edits/amendments must be made on the electronic document DICTATION DATE: 11/08/19 144 TRAFFIC SIGN SUPERVISOR: BURKE 11/08/19 144 RPT#: [id number] DC DATE: STATUS: ADM IN [facility] [address] [place] [address] END OF REPORT
--- NOTE | 2019-11-08 16:02 | NUR ---
DISCHARGED PATIENT HOME WITH VIA WHEELCHAIR. DISCONTINUED IV, CATHETER TIP INTACT. WENT OVER DISCHARGE INSTRUCTIONS WITH PATIENT, VERBALIZED UNDERSTANDING. DENIES ANYTHING FURTHER.
--- NOTE | 2019-11-09 13:48 | MORECARE ---
CASE MANAGEMENT DISCHARGE SUMMARY PATIENT: ROSALINDA OSORIO UNIT: [id number] ADM DATE: 11/04/19 AGE: 44 : 77 SEX: F ROOM/BED: D.2238 AUTHOR: ANTHONY BLACK PHYSICIAN: REFERRING PHYSICIAN: HARISH PRAKASH MD DATE OF SERVICE: 11/09/19 Discharge Plan Patient Name: ROSALINDA OSORIO Facility: [facility]:[place] : 1975 Planned Disposition: Anticipated Discharge Date: Discharge Date: 11/08/2019 Expected LOS: Initial Reviewer: [email or web address] Initial Review Date: 11/06/2019 Generated: 11/09/19 2:47 pm Comments DCP- Discharge Planning Updated by [email or web address]: Andra Peng on 11/08/19 1:[address] Patient Name: ROSALINDA OSORIO Admission Status: ER Accout number: [id number] Admission Date: 11-04-2019 : 1975 Admission Diagnosis:DISPLACED BICONDYLAR FRACTURE OF RIGHT TIBIA, INIT Attending: HARISH PRAKASH Current LOS: 4 Anticipated DC Date: Planned Disposition: Primary Insurance: MEDICARE A & B Discharge Planning Comments: WALKER WAS DELIVERED TO HER ROOM. IMM SIGNED. PLAN TO DC TO HOME TODAY. Legal Internship: Andra Peng DCP- Discharge Planning Updated by [id number]: Andra Peng on 11/07/19 3:[address] Patient Name: ROSALINDA OSORIO Admission Status: ER Accout number: [id number] Admission Date: 11-04-2019 : 1975 Admission Diagnosis:DISPLACED BICONDYLAR FRACTURE OF RIGHT TIBIA, INIT Attending: HARISH RPAKASH Current LOS: 3 Anticipated DC Date: Planned Disposition: Primary Insurance: MEDICARE A & B Discharge Planning Comments: SPOKE WITH PATIENT ABOUT REHAB, SHE DOES NOT WANT TO GO TO A SNF BECAUSE OF COVID. I FAXED ORDER FOR HER WALKER TO [facility]. ANTICIPATE THEM TO DELIVER IT TOMORROW. CM TO FOLLOW AND ASSIST NEEDED. Legal Internship: Andra Peng DCP- Discharge Planning Updated by [id number]: Andra Peng on 11/06/19 1:[address] Patient Name: ROSALINDA OSORIO Admission Status: ER Accout number: [id number] Admission Date: 11-04-2019 : 1975 Admission Diagnosis:DISPLACED BICONDYLAR FRACTURE OF RIGHT TIBIA, INIT Attending: HARISH PRAKASH Current LOS: 2 Anticipated DC Date: Planned Disposition: Primary Insurance: MEDICARE A & B Discharge Planning Comments: CM met with patient at bedside after explaining CM role and obtaining verbal consent. CM discussed availability / needs of home health, REHAB and medical equipment. STATES SHE WILL NEED A WALKER OR CRUTCHES. DOES NOT WANT HOME HEALTH BECAUSE SHE SAID SHE [place]IV[place]. PATIENT IS AMBULATORY WITH A WALKER IN THE HALLS. CM TO FOLLOW AND ASSIST NEEDED. Legal Internship: Andra Peng DCPIA - Discharge Planning Initial Assessment Updated by [email or web address]: Andra Peng on 11/06/19 2:54 pm * Is the patient Alert and Oriented? Yes * PCP FARO * Pharmacy [facility] * Preadmission Environment Other * Other Environment [facility] * ADLs Independent * Equipment None * Community resources currently utilized None * Additional services required to return to the preadmission environment? No * Can the patient safely return to the preadmission environment? Yes * Has this patient been hospitalized within the prior 30 days at any hospital? No Coverage Notice Reviewer: [id number] - Andra Peng Notice Issued Date-Time: 11/08/2019 14:45 Notice Type: IM Discharge Notice Notice Delivered To: Patient Relationship to Patient: Woods Warden Name: Delivery Method: HAND - Hand Delivered Lacey Days: Prior Verbal Notification: Recipient Understood Notice: Yes Recipient Signature: Yes Med Rec Note Co-signed by Attending: Coverage Notice Comment: Last DP export: 11/08/19 1:49 p Patient Name: ROSALINDA OSORIO Page [phone] at 1348 All edits/amendments must be made on the electronic document DICTATION DATE: 11/09/19 134 TELE RN: BURKE 11/09/197 RPT#: [id number] DC DATE:11/08/19 STATUS: DIS IN [facility] [address] [place] [address] END OF REPORT
== END 2019-11-08 16:16 | disposition home or self-care (01) | DRG 494 ==
LOC: D.ER 10:21 → D.EDHOLD 14:31 → D.MS 14:31
PROVIDERS: Emergency Medicine; Family Medicine; Orthopaedic Surgery; ADMIT Legal Medicine; ATTEND Legal Medicine
PROC: 0QSG04Z Reposition Right Tibia with Internal Fixation Device, Open Approach (ICD-10-PCS; principal; 2019-11-05 14:30)
DX: S82.141A Displaced bicondylar fracture of right tibia, initial encounter for closed fracture (principal); I10 Essential (primary) hypertension; D72.829 Elevated white blood cell count, unspecified; E87.6 Hypokalemia; R73.9 Hyperglycemia, unspecified; W19.XXXA Unspecified fall, initial encounter

== ENCOUNTER 2019-11-27 14:55 | Emergency (ER) | payer MEDICARE ==
[~2019-11-27] VITALS: Ht 152.4 cm; Wt 59.1 kg
[~2019-11-27 14:55] MED LIST changes: +ADVIL200 MG PO; +ELIQUIS2.5 MG PO; +HYDROCODON-ACE1 EA10 PO
[2019-11-27 14:59] VITALS: Ht 152.4 cm; Wt 59.1 kg
[2019-11-27 15:29] VITALS: BP 112/87
[2019-11-27 15:34] LABS: BASOPHILS 0.9 % (0-2); EOSINOPHILS 2.7 % (0-7); HEMATOCRIT 38.2 % (36.0-48.0); HEMOGLOBIN 12.2 g/dL (12-16); IMMATURE GRANULOCYTES 0.1 % (0-5); LYMPHOCYTES 23.3 % (15-50); MCH 27.8 pg (26.0-34.0); MCHC 31.9 g/dL (31.0-37.0); MONOCYTES 6.9 % (2-11); NEUTROPHILS 66.1 % (40-80); RBC 4.39 10x6/uL (4.00-5.40); RDW 12.8 % (11.5-14.5); WBC 7.7 10x3/uL (4.8-10.8)
[2019-11-27 15:38] LABS: BILIRUBIN NEGATIVE (NEGATIVE); KETONE NEGATIVE (NEGATIVE); NITRITE POSITIVE (NEGATIVE); UROBILINOGEN NORMAL mg/dL (< 2)
[2019-11-27 15:39] LABS: BACTERIA MANY HPF (NONE SEEN); EPITHELIAL CELLS 0-5 /hpf (0-5); WHITE CELLS - URINE >50 HPF (0-4)
[2019-11-27 15:40] LABS: PLATELET COUNT 485 10x3/uL (130-400)
[2019-11-27 15:58] LABS: ANION GAP 10.4 mmol/L (8-16); CALCIUM 9.6 mg/dL (8.5-10.1); CARBON DIOXIDE 30.3 mmol/L (21.0-32.0); CREATININE - SERUM 0.9 mg/dL (0.6-1.3); POTASSIUM - SERUM 3.7 mmol/L (3.5-5.1)
[2019-11-27 16:05] LABS: BILIRUBIN - TOTAL 0.14 mg/dL (0.2-1.3)
[2019-11-27] MEDS ORDERED: LEVAQUIN750 MG PO ×2 (19:06→19:22)
[2019-11-27] MEDS ORDERED: FLAGYL500 MG PO ×2 (19:06→19:22)
[2019-11-27] MEDS ORDERED: ULTRAM50 MG PO (19:22)
== END 2019-11-27 20:01 | disposition home or self-care (01) ==
LOC: D.ER 14:55
PROVIDERS: Family Medicine
DX: N82.8 Other female genital tract fistulae (principal); R30.0 Dysuria; N39.0 Urinary tract infection, site not specified